=== PATIENT | female | born 1995 | race African-American/Black ===

== ENCOUNTER 2021-11-21 16:37 | Emergency (ER) | payer MEDICAID ==
[~2021-11-21] VITALS: Ht 149.9 cm; Wt 44.9 kg
--- NOTE | 2021-11-21 16:49 | NUR ---
CAME IN FOR VAGINAL BLEEDING. "BLOOD CLOTS CAME OUT OF ME AROUND 450PM, Found up Im Tuesday but now bleeding". TO CHRISTOPHER 16, HOOKED TO MONITOR, VSS. CHANGED TO [facility], WARM BLANKET PROVIDED. AWAITING MD BARRERA
--- NOTE | 2021-11-21 17:02 | NUR ---
SANDRA PARTIDA AT BEDSIDE
--- NOTE | 2021-11-21 17:22 | NUR ---
NUCLEAR ENGINEERING TECHNICIAN AT BEDSIDE FOR BLOOD DRAW
[2021-11-21 17:35] LABS: BASOPHILS % (AUTO) 0.6 % (0.0-2.0); EOSINOPHILS % (AUTO) 1.1 % (0.0-6.0); HEMATOCRIT 38 % (33-45); HEMOGLOBIN 12.9 g/dL (11.5-14.8); LYMPHOCYTES % (AUTO) 34.1 % (20.0-44.0); MEAN CORPUSCULAR HGB CONC 34 g/dl (31.0-36.0); MEAN CORPUSCULAR VOLUME 94 fL (82-100); MONOCYTES # (AUTO) 0.5 K/uL (0.1-1.30); MONOCYTES % (AUTO) 8.8 % (2.0-12.0); NEUTROPHILS # (AUTO) 3.3 K/uL (1.8-8.9); NEUTROPHILS % (AUTO) 55.4 % (43.0-81.0); PLATELET COUNT (AUTO) 360 K/uL (150-450); RED BLOOD CELL COUNT(AUTO) 4.07 MIL/uL (4.0-5.2); WHITE BLOOD COUNT (AUTO) 5.9 K/uL (4.3-11.0)
--- NOTE | 2021-11-21 17:35 | NUR ---
PROVIDED CRACKERS AND A CUP OF WATER PER DR PARTIDA
--- NOTE | 2021-11-21 17:53 | NUR ---
URINE COLLECTED AND SENT TO LAB
[2021-11-21 17:54] LABS: ALBUMIN 3.9 g/dL (3.4-5.0); BILIRUBIN,TOTAL 0.3 mg/dL (0.2-1.0); CALCIUM, SERUM 8.7 mg/dL (8.5-10.1); CREATININE 0.7 mg/dL (0.6-1.3); POTASSIUM 3.7 mmol/L (3.5-5.1); TOTAL PROTEIN, SERUM 7.5 g/dL (6.4-8.2)
--- NOTE | 2021-11-21 18:28 | NUR ---
CALLED LAB FOR BLOOD BANK RESULTS, BRODERICK WILL CHECK AND GET BACK TO ME
[2021-11-21 18:57] LABS: BILIRUBIN,URINE NEGATIVE (NEGATIVE); LEUKOCYTE ESTERASE ,URINE TRACE (NEGATIVE); NITRITE, URINE NEGATIVE (NEGATIVE); PH,URINE 6.5 (5.0-8.0); PROTEIN,URINE 30 mg/dl (NEGATIVE); UGLUCOSE NEGATIVE (NEGATIVE); UROBILINOGEN,URINE 0.2 EU/dL (0.2)
[2021-11-21 19:00] LABS: COLOR,URINE ORANGE (YELLOW)
--- NOTE | 2021-11-21 19:06 | NUR ---
CANDIDATE FOR RHOGAM, MADE SANDRA PARTIDA AWARE
[2021-11-21 19:07] LABS: RBC,URINE 81-100 /HPF (0-2)
[2021-11-21 19:08] LABS: BACTERIA,URINE None seen /HPF (None Seen)
[2021-11-21] MEDS ORDERED: MISCELLANEOUS MED 1 EA EA XX ONE (19:30)
--- NOTE | 2021-11-21 20:15 | NUR ---
RHOGAM ADMINSTERRED LD IM. CONSENT FORMED SIGNED AND TWO RN'S VERIFIED PRODUCT PRIOR TO ADMINSTRATION. V/S STABLE PRIOR TO ADMIN.
--- NOTE | 2021-11-21 20:47 | NUR ---
Patient discharged to home in stable condition. Written and verbal after care instructions given. Patient verbalizes understanding of instruction. PT V/S stable at time of discharge and PT denies any adverse effects from RhoGAM administartion. PT ambualted out of ER with steady gait.
[2021-11-21 20:49] VITALS: BP 101/61
== END 2021-11-21 20:49 | disposition home or self-care (01) ==
LOC: ER 16:52
DX: O03.9 Complete or unspecified spontaneous abortion without complication (principal)
CPT/HCPCS: 36415; 76856; 80053; 81001; 84702; 85025; 96372; 99284; J2790

== ENCOUNTER 2021-12-24 10:32 | Emergency (ER) | payer MEDICAID ==
[~2021-12-24] VITALS: Ht 149.9 cm; Wt 44.5 kg
[2021-12-24 10:43] VITALS: BP 120/69
[2021-12-24] MEDS ORDERED: DEXAMETHASONE SOD PHOSPHATE 10 MG/ML VIAL ONE (11:04)
--- NOTE | 2021-12-24 11:06 | NUR ---
PATIENT STATED NO CHANCE OF , ON IUD
--- NOTE | 2021-12-24 11:11 | NUR ---
Patient discharged to home in stable condition. Written and verbal after care instructions given. Patient verbalizes understanding of instruction.
[2021-12-24] MEDS ORDERED: DEXAMETHASONE SOD PHOSPHATE 4 MG/ML VIAL IM ONE (11:30)
== END 2021-12-24 11:11 | disposition home or self-care (01) ==
LOC: ER 10:35
DX: J02.9 Acute pharyngitis, unspecified (principal)
CPT/HCPCS: 96372; 99283; J1100

== ENCOUNTER 2022-01-14 19:21 | Emergency (ER) | payer MEDICAID ==
[~2022-01-14] VITALS: Ht 147.3 cm; Wt 43.5 kg
--- NOTE | 2022-01-14 20:10 | NUR ---
BIBSELF C/O RIGHT EAR, LIPS SWELLING STARTED THIS MORNING SINCE 10AM. DENIES ANY KNOWN ALLERGENS. TOOK TWO TABS OF BENADRYL AT 1600 WITHOUT RELIEF. PT BREATHING EVEN AND UNLABORED DENIES SOB. PLACED ON MONITOR AND ALL V/S WNL/
[2022-01-14] MEDS ORDERED: methylPREDNISolone SOD SUCC 125 MG/2ML VIAL IV ONE (20:30)
[2022-01-14] MEDS ORDERED: IV NS 0.9% 1,000 ML BAG IV ONE (20:30)
[2022-01-14] MEDS ORDERED: diphenhydrAMINE HCL 50 MG/ML VIAL IV ONE (20:30)
[2022-01-14] MEDS ORDERED: FAMOTIDINE/PF INJ 20 MG/2 ML VIAL IV ONE ×2 (20:30→20:35)
[2022-01-14] MEDS ORDERED: diphenhydrAMINE HCL 50 MG/ML VIAL ONE (20:35)
[2022-01-14] MEDS ORDERED: methylPREDNISolone SOD SUCC 125 MG/2ML VIAL ONE (20:35)
--- NOTE | 2022-01-14 20:50 | NUR ---
20G IV LINE ESTABLISHED AT [facility]. PATENT AND INTACT.
[2022-01-14] MEDS ORDERED: FAMO-131 PO (21:25)
[2022-01-14] MEDS ORDERED: PRED20TA PO (21:25)
--- NOTE | 2022-01-14 21:36 | NUR ---
Patient discharged to home in stable condition. Written and verbal after care instructions given. Patient verbalizes understanding of instruction.
[2022-01-14 21:37] VITALS: BP 126/70
== END 2022-01-14 21:41 | disposition home or self-care (01) ==
LOC: ER 19:25
DX: T78.3XXA Angioneurotic edema, initial encounter (principal); T63.481A Toxic effect of venom of other arthropod, accidental (unintentional), initial encounter; H61.891 Other specified disorders of right external ear; Q16.1 Congenital absence, atresia and stricture of auditory canal (external); Z87.721 Personal history of (corrected) congenital malformations of ear; Y92.89 Other specified places as the place of occurrence of the external cause
CPT/HCPCS: 96361; 96374; 96375; 99284; J1200; J2930; J3490; J7030

== ENCOUNTER 2023-01-02 19:23 | Emergency (ER) | payer MEDICAID ==
[~2023-01-02] VITALS: Ht 147.3 cm; Wt 43.5 kg
[~2023-01-02 19:23] MED LIST: FAMO-131 PO; PRED20TA PO
[2023-01-02 19:29] VITALS: BP 121/85
--- NOTE | 2023-01-02 19:29 | NUR ---
noticed white vaginal discharges x 3 days, denies pain. Pt A/Ox.4 Tolerating R/A well with no Resp distress.
--- NOTE | 2023-01-02 19:37 | NUR ---
URINE COLLECTED AND SENT TO LAB
[2023-01-02] MEDS ORDERED: FLUCONAZOLE (100 MG) 100 MG TABLET ONE (20:50)
[2023-01-02] MEDS ORDERED: FLUCONAZOLE (100 MG) 100 MG TABLET PO ONE (21:00)
[2023-01-02 21:25] LABS: BILIRUBIN,URINE NEGATIVE (NEGATIVE); COLOR,URINE YELLOW (YELLOW); LEUKOCYTE ESTERASE ,URINE TRACE (NEGATIVE); NITRITE, URINE NEGATIVE (NEGATIVE); PH,URINE 7.5 (5.0-8.0); PROTEIN,URINE NEGATIVE (NEGATIVE); UGLUCOSE NEGATIVE (NEGATIVE); UROBILINOGEN,URINE 0.2 EU/dL (0.2)
[2023-01-02 21:30] LABS: BACTERIA,URINE 0 /HPF (None Seen); RBC,URINE 0-2 /HPF (0-2)
[2023-01-02 21:31] LABS: URINE AMORPHOUS PHOSPHATES Moderate /HPF (None Seen)
--- NOTE | 2023-01-02 21:54 | NUR ---
CHAPERONED DR ARMENTA DURING PELVIC EXAM
--- NOTE | 2023-01-02 21:55 | NUR ---
[facility] COLLECTED AND SENT TO LAB
--- NOTE | 2023-01-02 22:14 | NUR ---
Patient discharged to home in stable condition. Written and verbal after care instructions given. Patient verbalizes understanding of instruction.
== END 2023-01-02 22:14 | disposition home or self-care (01) ==
LOC: ER 19:26
DX: B37.31 Acute candidiasis of vulva and vagina (principal)
CPT/HCPCS: 81001; 84703-TC; 87210-TC; 87491; 87591

== ENCOUNTER 2023-08-18 11:00 | Emergency (ER) | payer MEDICAID, OTHER ==
[~2023-08-18] VITALS: Ht 147.3 cm; Wt 43.5 kg
[~2023-08-18 11:00] MED LIST changes: +DOXY100C2 PO; +ONDA4TAB5 PO
[2023-08-18 11:13] VITALS: BP 125/65; TEMP 98.1; O2SAT 96
== END 2023-08-18 12:38 | disposition home or self-care (01) ==
LOC: ER 11:00
DX: T19.2XXA Foreign body in vulva and vagina, initial encounter (principal); Z79.899 Other long term (current) drug therapy; W44.8XXA Other foreign body entering into or through a natural orifice, initial encounter